=== PATIENT | male | born 1990 | race Caucasian/White ===

== ENCOUNTER 2018-05-05 20:02 | Emergency (ER) | payer OTHER ==
[~2018-05-05] VITALS: Ht 177.8 cm; Wt 65.8 kg
[~2018-05-05 20:02] MED LIST: CIPROFLOXACIN500 M1 PO; CLEOCIN HCL300 MG PO; HYDROCODONE-AP1 EAC6 PO; NAPROSYN500 MG PO
[2018-05-05 20:16] VITALS: BP 134/91
[2018-05-05] MEDS ORDERED: NORCO 7.5-3251 EACH PO (20:20)
[2018-05-05] MEDS ORDERED: KEFLEX500 M1 PO (20:20)
== END 2018-05-05 21:35 | disposition home or self-care (01) ==
LOC: M.ERS 20:02
DX: S02.5XXA Fracture of tooth (traumatic), initial encounter for closed fracture (principal); Z88.1 Allergy status to other antibiotic agents; Z88.0 Allergy status to penicillin; Z88.2 Allergy status to sulfonamides; X58.XXXA Exposure to other specified factors, initial encounter; Y93.89 Activity, other specified; Y92.89 Other specified places as the place of occurrence of the external cause; Y99.8 Other external cause status

== ENCOUNTER 2018-05-05 21:07 | Emergency (ER) | payer OTHER ==
[~2018-05-05] VITALS: Ht 177.8 cm; Wt 63.5 kg
[~2018-05-05 21:07] MED LIST changes: +KEFLEX500 M1 PO; +NORCO 7.5-3251 EACH PO
[2018-05-05 21:23] VITALS: BP 111/75
== END 2018-05-05 21:35 | disposition home or self-care (01) ==
LOC: M.ERS 21:07
DX: K02.9 Dental caries, unspecified (principal); Z88.1 Allergy status to other antibiotic agents; Z88.0 Allergy status to penicillin; Z88.2 Allergy status to sulfonamides